=== PATIENT | female | born 1975 | race African-American/Black ===

== ENCOUNTER 2023-09-10 11:01 | Emergency (ER) | payer BC, SELFPAY ==
[2023-09-10 11:01] VITALS: BMI 24.4
[2023-09-10 11:21] VITALS: BP 127/78
[2023-09-10] MEDS: TORADOL 30 MG IV (13:57)
--- NOTE | 2023-09-10 14:03 | ED.GENMED ---
History of Present Illness
<Nathalie Smalls PA-C - Last Filed: 09/11/23 12:30>
General
Chief Complaint: Musculo-Skeletal Complaint
Source: patient
Exam Limitations: none
Time Seen by Provider: 09/10/23 12:56
Nursing documentation reviewed up to this point in time: agreed with
Travel History
Have you had any contact with someone who has COVID-19?: No
Do you have any symptoms of coronavirus? Fever > 100 degrees, chills, cough, shortness of breath, sore throat, loss of taste or smell, muscle aches, or headache?: No
History of Present Illness
History of Present Illness:
PT IS A 48 Y/O F with no sig pmh
woke up this morning with a pain in the left upper chest/shoulder region with shooting pain into the left arm at times
she took tylenol this morning and it helped for a little but it is worsening now
she doesn't recall anyh injury
is a police sergeant
she does think that the pain is worse with certain movements but it also is worse with deep breathing
no recent long travel or immobilization, no OCPs
no cough, cold
no heart diseaes
denies weakenss in the arm
Past History
<Nathalie Smalls PA-C - Last Filed: 09/11/23 12:30>
Past History
ED Past Medical History: None; Negative HTN or IDDM
ED Past Surgical History: None
Social History
Tobacco: Non-smoker
Alcohol: Occasional
Drug: None
Employment: Employed
Family History
Family History: Diabetes
Review of Systems
<Nathalie Smalls PA-C - Last Filed: 09/11/23 12:30>
Review of Systems
Allergies reviewed?: Yes
All Other Systems: Not applicable
Phy Exam
<Nathalie Smalls PA-C - Last Filed: 09/11/23 12:30>
Physical Exam
Physical Exam:
GENERAL: Alert , in no apparent distress
EYE: pupils equal and reactive
NECK: Supple
ENT: o/p clr, mmm.
CARDIAC: Regular rate and rhythm .
Chest wall: Nontender, no rash
LUNGS: Clear breath sounds bilaterally, no acute respiratory distress, no wheezes/rales/rhonchi
ABDOMEN: Soft, without focal tenderness, no r/g, no cvat, normal bowel sounds
NEUROLOGICAL: Alert and oriented, no focal neuro deficits
SKIN: Warm and dry, skin intact.
MUSCULOSKELETAL:
Normal inspection of the left shoulder and left upper arm without swelling or focal tenderness. She does seem to have some discomfort with arm extension across her body, negative drop arm test, normal sensation and strength the distally, normal
pulse distally, cap refill normal
PSYCH: Normal and appropriate interaction.
Course
<Nathalie Smalls PA-C - Last Filed: 09/11/23 12:30>
Orders/Labs/Results
Orders:
Orders
09/10/23 11:22
EKG [Electrocardiogram (*1)] Urgent
Reason for Study: Other
Other Reason for Exam: shoulder pain
EKG- Treatment ONCE
09/10/23 13:46
Test Result ONCE
CR Chest - 2 Views Urgent
Comment:
Reason For Exam: left upper chest pain
CR Shoulder, Trauma - Left Urgent
Comment:
Reason For Exam: left shoulder pain
09/10/23 13:47
Ketorolac [Toradol] 30 mg IV NOW STA
09/10/23 13:54
Complete Blood Count/With Diff Urgent
Comprehensive Metabolic Panel Urgent
D-Dimer Urgent
HCG, Serum Qualitative Screen Urgent
Troponin I Urgent
09/10/23 14:41
CT Chest Pe Study Urgent
Comment:
Reason For Exam: d dimer elevated
09/10/23 16:38
Venous Doppler Lwr Ext Bilat [US Periph Venous LOWER Ext Aaron] Urgent
Comment:
Reason For Exam: elevated d dimer
09/10/23 16:58
Electrocardiogram (*1) Urgent
Reason for Study: Chest Pain
EKG- Treatment ONCE
09/10/23 17:02
Troponin I Urgent
Abnormal Lab Results
09/10/23
13:54
Hgb 11.7 L g/dL
(12.0-16.0)
Hct 36.0 L %
(37.0-47.0)
MCHC 32.5 L g/dL
(33.0-37.0)
RDW 14.9 H %
(11.5-14.5)
Absolute Monos (auto) 0.8 H 10^3/uL
(0.1-0.6)
Neutrophils % 35.4 L %
(42.2-75.2)
Monocytes % 12.6 H %
(1.7-9.3)
D-Dimer 2.16 H ug/mlFEU
(0.00-0.50)
BUN 18 H mg/dl
(7-17)
09/10/23 13:54
09/10/23 13:54
Vital Signs
Initial and Last Documented VS:
Initial Vital Signs
Temp Pulse Resp BP Pulse Ox
97.9 F 66 17 127/78 99
09/10/23 11:21 09/10/23 11:21 09/10/23 11:21 09/10/23 11:21 09/10/23 11:21
Last Documented Vital Signs
Temp Pulse Resp BP Pulse Ox
97.9 F 69 18 108/77 100
09/10/23 11:21 09/10/23 16:39 09/10/23 16:39 09/10/23 16:39 09/10/23 16:39
<David Mercado MD - Last Filed: 09/10/23 17:09>
Orders/Labs/Results
Orders:
Orders
09/10/23 11:22
EKG [Electrocardiogram (*1)] Urgent
Reason for Study: Other
Other Reason for Exam: shoulder pain
EKG- Treatment ONCE
09/10/23 13:46
Test Result ONCE
CR Chest - 2 Views Urgent
Comment:
Reason For Exam: left upper chest pain
CR Shoulder, Trauma - Left Urgent
Comment:
Reason For Exam: left shoulder pain
09/10/23 13:47
Ketorolac [Toradol] 30 mg IV NOW STA
09/10/23 13:54
Complete Blood Count/With Diff Urgent
Comprehensive Metabolic Panel Urgent
D-Dimer Urgent
HCG, Serum Qualitative Screen Urgent
Troponin I Urgent
09/10/23 14:41
CT Chest Pe Study Urgent
Comment:
Reason For Exam: d dimer elevated
09/10/23 16:38
Venous Doppler Lwr Ext Bilat [US Periph Venous LOWER Ext Aaron] Urgent
Comment:
Reason For Exam: elevated d dimer
09/10/23 16:58
Electrocardiogram (*1) Urgent
Reason for Study: Chest Pain
EKG- Treatment ONCE
09/10/23 17:02
Troponin I Urgent
Abnormal Lab Results
09/10/23
13:54
Hgb 11.7 L g/dL
(12.0-16.0)
Hct 36.0 L %
(37.0-47.0)
MCHC 32.5 L g/dL
(33.0-37.0)
RDW 14.9 H %
(11.5-14.5)
Absolute Monos (auto) 0.8 H 10^3/uL
(0.1-0.6)
Neutrophils % 35.4 L %
(42.2-75.2)
Monocytes % 12.6 H %
(1.7-9.3)
D-Dimer 2.16 H ug/mlFEU
(0.00-0.50)
BUN 18 H mg/dl
(7-17)
09/10/23 13:54
09/10/23 13:54
Vital Signs
Initial and Last Documented VS:
Initial Vital Signs
Temp Pulse Resp BP Pulse Ox
97.9 F 66 17 127/78 99
09/10/23 11:21 09/10/23 11:21 09/10/23 11:21 09/10/23 11:21 09/10/23 11:21
Last Documented Vital Signs
Temp Pulse Resp BP Pulse Ox
97.9 F 69 18 108/77 100
09/10/23 11:21 09/10/23 16:39 09/10/23 16:39 09/10/23 16:39 09/10/23 16:39
<Nathalie Smalls PA-C - Last Filed: 09/11/23 12:30>
MDM/Problems Addressed
Differential Diagnosis Includes:
PE,k chest wall pain, radiculopathy, shoulder pain
MDM/Problems Addressed:
48 y/o F with left upper chest/shoulder pain this morning when she woke up
she told the ED attening that she has had this pain before for a few months bu ti twass worse today
no trauma, no numbness/tingling/weakness in the arm
but it is worse wtih deep breathing
on exam pt is having spasms of pain without movement but also provoked pain with omveent, arm extension and rotation, neg drop arm test
some pleuritic component without being dyspneic
vitals stable
nv intact
heart sounds normal
ekg normal
eval with trop x 2 which were neg
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 dorsey who reviewed images and said this gallito actually descending aorta which is
vascular terrritory
i spke with dr. wolf who said pt can safely go home, it is small, he will bring her into the office to be seen as outpatient, no restrictions on activity
pt seen by ed attending who agreed
requestd b/l LE dopplers to ensure no DVT.
d/c home otherwise, pain reolved with toradol.
likely MSK
<Nathalie Smalls PA-C - Last Filed: 09/11/23 12:30>
*Critical Care Note
Total Time (30-74mins, 75-104mins- exclusive of procedures): Not Applicable
ED Attending Note
<Nathalie Smalls PA-C - Last Filed: 09/11/23 12:30>
-
Portions of this chart may have been created with voice recognition software.� Occasional wrong word or��sound alike� substitutions may have occurred due to the inherent limitations of voice recognition software.
<David Mercado MD - Last Filed: 09/10/23 17:09>
ED Attending Note
Patient seen and examined by attending physician: Yes
I performed the substantive portion of visit, reviewed & personally made and approve the management plan that is documented in note by myself or YVON.: Yes
ED Attending Note:
48-year-old female nontraumatic right scapular shoulder pain with radiation to the arm that she woke up with this morning. Has had this intermittently for months. Always with awakening but usually improves throughout the day. Somewhat worse pain
with breathing. No true shortness of breath no cough congestion or infectious symptoms. No exertional symptoms.
GENERAL: Alert and oriented in no apparent distress. He clearly winces in pain with the active sitting up. Some increased pain with left arm movement. Good distal pulses and color.
EYE: Orbits normal.
NECK: Supple. Nontender
CARDIAC: Regular rate and rhythm without any obvious murmurs.
LUNGS: Clear breath sounds,normal
NEUROLOGICAL: Alert and oriented , grossly non-focal
SKIN: Warm and dry, no rash or lesion, no discoloration, skin intact.
MUSCULOSKELETAL: No edema,no deformity.Good color
PSYCH: Normal and appropriate interaction.
EKG sinus bradycardia 55 no acute changes. Labs are stable. Troponin negative. D-dimer positive however. CT of the chest negative except for a small saccular aneurysm.
Impression prolonged left scapular pain with radiation to the arm very positional in nature. Highly doubt cardiac. We will do repeat troponin and EKG for completeness. She has a small saccular aneurysm that is not leaking and unlikely to be a
component of this although this was confirmed with cardiothoracic surgery who is in agreement and will follow-up. With the positive dimer we will do leg ultrasounds. There is no clinical findings to support DVT however. If all stable can be
discharged with close follow-up
Discharge Plan
Departure
Patient Disposition: Home (Routine Discharge)
Date of Disposition: 09/10/23
Time of Disposition: 19:50
Patient with high blood pressure during this ER visit?: No
Condition: Fair
Covid-19: Not Applicable
Discharge Problem:
Acute chest wall pain, Anterior shoulder pain
Instructions: Aortic Aneurysm (DC), Shoulder Pain (DC)
Prescriptions:
New
ibuprofen 600 mg tablet
600 mg PO TID PRN (Reason: Pain) Qty: 30 0RF
No Action
[id number] 1 TABLET tablet
1 tab PO PRN PRN (Reason: headaches)
multivit with min-folic acid [Adult Multivitamin Gummies] 200 MCG tablet,chewable
200 mcg PO DAILY
Referrals:
Ck Wolf III, MD [Active] - Follow up in 2-3 days (call tuesday for a follow up this week or next, tell the staff that i talked to dr. wolf)
Juliette Staley MD [Family Provider] - Follow up in 2-3 days
Activity Restrictions/Additional Instructions:
YOUR PAIN IS LIKELY MUSCULAR
YOU SHOULD TRY MOTRIN 600 MG 2-3 TIMES A DAY WITH FOOD FOR 3-5 DAYS NEEDED FOR PAIN
YOU HAD NO SIGNS OF A HEART ATTACK
YOU HAD NO BLOOD CLOT
INCIDENTALLY YOOU HAVE A SMALL OUTPOUCHING OF A VESSEL IN YOUR CHEST, CALLED AN AORTIC ANEURYSM.
IT IS MEASURING 5X7 MM
THIS IS VERY SMALL
BUT BECAUSE THIS WAS FOUND, YOU SHOULD FOLLOW UP WITH THE COMFORT FILLER THIS WEEK
CALL TUESDAY, SAY YOU WERE IN OUR ER AND THAT I SPOKE WITH DR. WOLF WHO WANTED YOU TO BE SEEN IN THE OFFICE FOR AN AORTIC ANEURYSM WITHIN THE NEXT WEEK OR SO
RETURN FOR: SEVERE PAIN, PASSING OUT, ARM NUMBNESS/WEAKNESS, TROUBLE BREATHING, FEVER OR ANY CONCERNS.
Interventions
Interventions:
*Risk Screen - Suicide Last Done: 09/10/23 11:51
*General Assessment Last Done: 09/10/23 11:51
*Neglect/Abuse Screening Last Done: 09/10/23 11:51
*Nursing Disposition Last Done: 09/10/23 20:02
ED-Musculoskeletal Assessment Last Done: 09/10/23 11:51
Discharge Date and Time
Discharge Date/Time: 09/10/23 20:03
Print Language: KITTITIAN
[2023-09-10 14:08] LABS: % Basophils 0.5 % (0-2); % Eosinophils 1.3 % (0-6); % Immature Granulocytes 0.2 % (0-0.5); % Monocytes 12.6 % (1.7-9.3); % Neutrophils 35.4 % (42.2-75.2); Absolute Eosinophils 0.1 10^3/uL (0-0.7); Absolute Lymphocytes 3.1 10^3/uL (1.2-3.4); Absolute Monocytes 0.8 10^3/uL (0.1-0.6); Absolute Neutrophils 2.2 10^3/uL (1.4-6.5); Hemoglobin 11.7 g/dL (12.0-16.0); Mean Corp Hgb Conc. 32.5 g/dL (33.0-37.0); Mean Corpuscular Hgb 27.5 pg (27.0-31.0); Mean Corpuscular Volume 84.7 fL (81.0-99.0); Nucleated Red Blood Cells % 0 %; Platelet Count 340 10^3/uL (130-400); Red Blood Cell Count 4.25 10^6/uL (4.20-5.40); Red Cell Dist. Width 14.9 % (11.5-14.5); White Blood Cell Count 6.2 10^3/uL (4.8-10.8)
[2023-09-10 14:16] LABS: D-Dimer 2.16 ug/mlFEU (0.00-0.50)
[2023-09-10 14:19] LABS: ALT (SGPT) 13 U/L (0-35); AST (SGOT) 24 U/L (14-36); Albumin 4.5 g/dl (3.5-5.0); Alkaline Phosphatase 67 U/L (38-126); Blood Urea Nitrogen 18 mg/dl (7-17); Calcium 9.7 mg/dl (8.4-10.2); Carbon Dioxide 24 mmol/L (22-30); Chloride 106 mmol/L (98-107); Estimated Creatinine Clearance 81 ml/min; Glucose 84 mg/dl (70-99); HCG, Serum Qualitative Screen Negative; Potassium 4.4 mmol/L (3.5-5.1); Sodium 136 mmol/L (135-145); Total Bilirubin 0.4 mg/dl (0.2-1.3); Total Protein 8.1 g/dl (6.3-8.2); eGFR > 60.00
[2023-09-10 14:53] LABS: Troponin I < 0.012 ng/ml
[2023-09-10 16:39] VITALS: BP 108/77
[2023-09-10 17:36] LABS: Troponin I < 0.012 ng/ml
== END 2023-09-10 20:03 | disposition home or self-care (01) ==
LOC: EMR 11:01
PROVIDERS: Physician Assistant; EMERGENCY PHYSICIAN Emergency Medicine; FAMILY PHYSICIAN Internal Medicine
DX: R07.89 Other chest pain (principal)
CPT/HCPCS: 99284; 96374; 71046; 71275; 73030; 80053; 84484; 84703; 85025; 85379; 93005; 93970; Q9967

== ENCOUNTER → 2024-01-09 13:48 | Outpatient (REF) | payer BC, SELFPAY | LOC: RAD 13:48 | PROVIDERS: ATTENDING PHYSICIAN Surgery Vascular Surgery; FAMILY PHYSICIAN Internal Medicine | DX: Q27.8 Other specified congenital malformations of peripheral vascular system (principal) | CPT/HCPCS: 71275; Q9967 ==

== ENCOUNTER → 2024-08-13 16:26 | Outpatient (REF) | payer BC, SELFPAY | LOC: RAD 16:26 | PROVIDERS: ATTENDING PHYSICIAN Surgery Vascular Surgery; FAMILY PHYSICIAN Internal Medicine | DX: Q27.8 Other specified congenital malformations of peripheral vascular system (principal) | CPT/HCPCS: 71275; Q9967 ==